=== PATIENT | male | born 2000 | race Caucasian/White ===

== ENCOUNTER 2022-06-12 12:06 | Inpatient (IN) | payer MEDICAID ==
[2022-06-12] VITALS (31 sets, daily range): BP systolic 94–121; BP diastolic 49–71
[~2022-06-12] VITALS: Ht 170.2 cm; Wt 68.0 kg
[~2022-06-12 12:06] MED LIST: AMOX/K CLAV875 M1 PO; HUMALOG100 UNIT/M SC
--- NOTE | 2022-06-12 12:10 | NUR ---
PT ARRIVED VIA EMS AND IS IN ROOM.
[2022-06-12 12:42] LABS: HEMATOCRIT 40.3 % (39.0-50.0); HEMOGLOBIN 14.9 g/dl (14.0-18.0); IMMATURE GRANULOCYTES 1.1 % (0.0-5.0); MEAN CELL VOLUME 81.6 fL CALC (80.0-100.0); MEAN CORPUSCULAR HGB 30.2 pG CALC (26.0-32.0); NEUT# 17.44 thou/uL (1.82-7.42); RED BLOOD COUNT 4.94 mill/uL (4.70-6.10); RED CELL DISTRI WIDTH 11.5 % (11.5-15.5)
--- NOTE | 2022-06-12 12:43 | NUR ---
PT IN ROOM ON MONITOR RECEIVING IV FLUIDS, AWAITING LAB AND ABG RESULTS, FAMILY AT BEDSIDE, WILL CONT TO MONITOR.
--- NOTE | 2022-06-12 13:05 | NUR ---
PT IN ROOM ON MONITOR RECEIVING LACTATED RINGERS VIA IV, PT REMAINS ALERT AND ORIENTED AND IS GIVING A URINE SAMPLE NOW.
--- NOTE | 2022-06-12 13:14 | NUR ---
URINE SAMPLE SENT TO LAB, AWAITING RESULTS.
[2022-06-12 13:18] LABS: ALBUMIN 4.6 g/dL (3.2-5.0); ALKALINE PHOSPHATASE 122 u/l (38-126); BILIRUBIN, TOTAL 0.4 mg/dL (0.0-1.4); BUN 28 mg/dL (8-21); BUN/CREATININE RATIO 28 (12-20 (CALC)); CHLORIDE 100 mmol/l (95-108); GFR FOR AFR.AMER. > 60 ML/MIN (>=60 (CALC)); GFR OTHER RACES > 60 ML/MIN (>=60 (CALC)); LIPASE 26 u/l (23-300); MAGNESIUM 2.2 mg/dL (1.6-2.3); SGOT/AST 33 u/l (17-59); SODIUM 135 mmol/l (137-146); TOTAL PROTEIN 6.9 g/dL (6.3-8.2)
[2022-06-12 13:25] LABS: ANION GAP 35 (6-22 (CALC))
[2022-06-12 13:26] LABS: CARBON DIOXIDE 6 mmol/l (22-30); POTASSIUM 5.9 mmol/l (3.5-5.1)
--- NOTE | 2022-06-12 13:26 | NUR ---
REPORTED CRITICAL LABS TO DR. CARUSO AND NURSE MELISSA, RN GLUCOSE 620, POTASSIUM 5.9, C02 6, LACTIC ACID 2.7. RECEIVED FROM MARGARET GONG.
--- NOTE | 2022-06-12 13:36 | NUR ---
INSULIN DRIP STARTED AT 5 UNITS/HR, BG 620 AT START OF INSULIN DRIP.
[2022-06-12 13:49] LABS: URINE BILIRUBIN - DIPSTICK NEGATIVE (NEGATIVE); URINE BLOOD DIPSTICK NEGATIVE (NEGATIVE); URINE COLOR YELLOW; URINE GLUCOSE - DIPSTICK 500 mg/dL (NEGATIVE); URINE KETONE >=80 mg/dL (NEGATIVE); URINE LEUK ESTERASE NEGATIVE (NEGATIVE); URINE PH 5.5 (4.5-8.0); URINE PROTEIN - DIPSTICK NEGATIVE (NEG-TRACE); URINE SPECIFIC GRAVITY 1.025; URINE UROBILINOGEN - DIPSTICK 0.2 E.U./dL (0.2)
[2022-06-12 13:50] LABS: URINE NITRITE - DIPSTICK NEGATIVE (Negative)
--- NOTE | 2022-06-12 14:27 | NUR ---
PT PENDING ADMISSION TO THE ICU, INSULIN DRIP RUNNING AND FAMILY IS AT BEDSIDE.
--- NOTE | 2022-06-12 14:34 | NUR ---
PT BS VIA ACCUCHECK IS 432 ONE HHOUR AFTER STARTING INSULIN DRIP, INFUSION CONTINUING AT 5 UNITS/HR. AWAITING ADMISSION TO ICU.
--- NOTE | 2022-06-12 15:17 | NUR ---
PT ADMITTED TO ICU, REPORT GIVEN TO LAWANDA CABRERA IN ED AND PT TRANSPORTED VIA STRETCHER TO ICU BY LAWANDA CABRERA WITH INSULIN DRIP INFUSING AT 5 UNITS/HR
--- NOTE | 2022-06-12 17:05 | NUR ---
PT ARRIVES FROM ER VIA STRETCHER ACCOMPANIED BY LAWANDA CABRERA AND AKI RN. PT IS ALERT AND ORIENTED X 3. INSULIN DRIP INFUSING AT 5 UNITS HOURLY, NOW DOWN TO 3 UNITS HOURLY PER HOURLY GLUCOSE METER READINGS. PT PROVIDED ICE CHIPS.
--- NOTE | 2022-06-12 19:11 | NUR ---
lab notified of need for blood draw due.
--- NOTE | 2022-06-12 19:12 | NUR ---
lab here. blood drawn.
--- NOTE | 2022-06-12 19:30 | NUR ---
awake. denies distress. conveyor monitor shows sinus rhythm. #18 rac ivf infusing well. #20 alonzo saline lock. voided per urinal. fall prcautions cont.
[2022-06-12 19:35] LABS: BUN 19 mg/dL (8-21); BUN/CREATININE RATIO 21 (12-20 (CALC)); CHLORIDE 109 mmol/l (95-108); CREATININE 0.9 mg/dL (0.7-1.3); GFR FOR AFR.AMER. > 60 ML/MIN (>=60 (CALC)); GFR OTHER RACES > 60 ML/MIN (>=60 (CALC)); SODIUM 140 mmol/l (137-146)
[2022-06-12 19:38] LABS: ANION GAP 26 (6-22 (CALC)); CARBON DIOXIDE 10 mmol/l (22-30); POTASSIUM 4.5 mmol/l (3.5-5.1)
--- NOTE | 2022-06-12 22:19 | NUR ---
lab here. blood drawn.
[2022-06-12 22:36] LABS: ANION GAP 21 (6-22 (CALC)); BUN 17 mg/dL (8-21); BUN/CREATININE RATIO 21 (12-20 (CALC)); CARBON DIOXIDE 12 mmol/l (22-30); CHLORIDE 108 mmol/l (95-108); CREATININE 0.8 mg/dL (0.7-1.3); GFR FOR AFR.AMER. > 60 ML/MIN (>=60 (CALC)); GFR OTHER RACES > 60 ML/MIN (>=60 (CALC)); POTASSIUM 4.4 mmol/l (3.5-5.1); SODIUM 137 mmol/l (137-146)
[2022-06-13] VITALS (12 sets, daily range): BP systolic 83–108; BP diastolic 36–81
--- NOTE | 2022-06-13 00:01 | NUR ---
eyes closed. no distress. ivf infusing well.
--- NOTE | 2022-06-13 02:05 | NUR ---
lab here. blood ddrawn.
[2022-06-13 02:31] LABS: BUN 15 mg/dL (8-21); BUN/CREATININE RATIO 20 (12-20 (CALC)); CHLORIDE 107 mmol/l (95-108); CREATININE 0.8 mg/dL (0.7-1.3); GFR FOR AFR.AMER. > 60 ML/MIN (>=60 (CALC)); GFR OTHER RACES > 60 ML/MIN (>=60 (CALC)); POTASSIUM 4.1 mmol/l (3.5-5.1); SODIUM 134 mmol/l (137-146)
[2022-06-13 02:37] LABS: ANION GAP 15 (6-22 (CALC)); CARBON DIOXIDE 16 mmol/l (22-30)
--- NOTE | 2022-06-13 04:00 | NUR ---
eyes closed. no apparent distress.
--- NOTE | 2022-06-13 06:03 | NUR ---
lab here. blood drawn.
[2022-06-13 06:06] LABS: HEMATOCRIT 36.2 % (39.0-50.0); HEMOGLOBIN 13.3 g/dl (14.0-18.0); IMMATURE GRANULOCYTES 0.2 % (0.0-5.0); MEAN CELL VOLUME 82.6 fL CALC (80.0-100.0); MEAN CORPUSCULAR HGB 30.4 pG CALC (26.0-32.0); MEAN CORPUSCULAR HGB CONC 36.7 g/dL CAL (32.0-36.0); NEUT# 9.72 thou/uL (1.82-7.42); RED BLOOD COUNT 4.38 mill/uL (4.70-6.10); RED CELL DISTRI WIDTH 11.9 % (11.5-15.5)
[2022-06-13 06:21] LABS: ANION GAP 14 (6-22 (CALC)); BUN 15 mg/dL (8-21); BUN/CREATININE RATIO 19 (12-20 (CALC)); CARBON DIOXIDE 18 mmol/l (22-30); CHLORIDE 106 mmol/l (95-108); CREATININE 0.8 mg/dL (0.7-1.3); GFR FOR AFR.AMER. > 60 ML/MIN (>=60 (CALC)); GFR OTHER RACES > 60 ML/MIN (>=60 (CALC)); POTASSIUM 3.7 mmol/l (3.5-5.1); SODIUM 134 mmol/l (137-146)
[2022-06-13 10:37] LABS: ANION GAP 17 (6-22 (CALC)); BUN 13 mg/dL (8-21); BUN/CREATININE RATIO 18 (12-20 (CALC)); CARBON DIOXIDE 17 mmol/l (22-30); CHLORIDE 104 mmol/l (95-108); CREATININE 0.7 mg/dL (0.7-1.3); GFR FOR AFR.AMER. > 60 ML/MIN (>=60 (CALC)); GFR OTHER RACES > 60 ML/MIN (>=60 (CALC)); SODIUM 134 mmol/l (137-146)
== END 2022-06-13 11:00 | disposition home or self-care (01) | DRG 639 ==
LOC: ED 12:06 → ED-I 13:20 → ED 13:56 → ICU 13:57
PROVIDERS: Family Medicine; ADMIT Internal Medicine; ATTEND Internal Medicine
DX: E10.10 Type 1 diabetes mellitus with ketoacidosis without coma (principal); F32.A Depression, unspecified; F41.9 Anxiety disorder, unspecified; F17.210 Nicotine dependence, cigarettes, uncomplicated; Z96.41 Presence of insulin pump (external) (internal); Z79.4 Long term (current) use of insulin; Z20.822 Contact with and (suspected) exposure to COVID-19

== ENCOUNTER 2022-07-11 11:04 | Emergency (ER) | payer MEDICAID ==
[~2022-07-11] VITALS: Ht 170.2 cm; Wt 80.0 kg
[2022-07-11 11:13] VITALS: BP 119/78
[2022-07-11 11:32] VITALS: BP 119/78
[2022-07-11] MEDS ORDERED: OMNI-PAC300 MG PO (11:43)
== END 2022-07-11 12:09 | disposition home or self-care (01) ==
LOC: ED 11:04
DX: L03.012 Cellulitis of left finger (principal); E10.8 Type 1 diabetes mellitus with unspecified complications; F32.A Depression, unspecified; E78.00 Pure hypercholesterolemia, unspecified; F41.9 Anxiety disorder, unspecified; F17.200 Nicotine dependence, unspecified, uncomplicated; Z79.4 Long term (current) use of insulin

== ENCOUNTER 2023-03-07 21:01 | Emergency (ER) | payer OTHER ==
[~2023-03-07] VITALS: Ht 170.2 cm; Wt 72.5 kg
[~2023-03-07 21:01] MED LIST changes: +OMNI-PAC300 MG PO
[2023-03-07 21:09] VITALS: BP 116/70
[2023-03-07 21:31] LABS: BASO% 0.1 % (0-3); EOS% 1.5 % (0-8); IMMATURE GRANULOCYTES 0.3 % (0.0-5.0); LYMPH% 4.7 % (15-41); MEAN CELL VOLUME 85.1 fL CALC (80.0-100.0); MEAN CORPUSCULAR HGB 30.1 pG CALC (26.0-32.0); MEAN CORPUSCULAR HGB CONC 35.3 g/dL CAL (32.0-36.0); MONO% 4.2 % (2-13); NEUT# 10.7 thou/uL (1.82-7.42); NEUT% 89.2 % (42-76); RED BLOOD COUNT 5.25 mill/uL (4.70-6.10); RED CELL DISTRI WIDTH 11.5 % (11.5-15.5)
[2023-03-07 21:33] LABS: HEMATOCRIT 44.7 % (39.0-50.0); HEMOGLOBIN 15.8 g/dl (14.0-18.0)
[2023-03-07 21:47] LABS: ALBUMIN 4.6 g/dL (3.2-5.0); ALKALINE PHOSPHATASE 68 u/l (38-126); BUN 21 mg/dL (9-20); BUN/CREATININE RATIO 26 (12-20 (CALC)); CHLORIDE 107 mmol/l (95-108); CREATININE 0.8 mg/dL (0.7-1.3); GFR FOR AFR.AMER. > 60 ML/MIN (>=60 (CALC)); GFR OTHER RACES > 60 ML/MIN (>=60 (CALC)); LIPASE 53 u/l (23-300); POTASSIUM 3.3 mmol/l (3.5-5.1); SGOT/AST 36 u/l (17-59); TOTAL PROTEIN 7.2 g/dL (6.3-8.2)
[2023-03-07 21:48] LABS: ANION GAP 13 (6-22 (CALC)); BILIRUBIN, TOTAL 0.6 mg/dL (0.2-1.3); CARBON DIOXIDE 24 mmol/l (22-30); MAGNESIUM 1.6 mg/dL (1.6-2.3); SODIUM 141 mmol/l (137-146)
[2023-03-07 21:53] VITALS: BP 116/70
[2023-03-07 23:26] LABS: URINE BILIRUBIN - DIPSTICK NEGATIVE (NEGATIVE); URINE BLOOD DIPSTICK NEGATIVE (NEGATIVE); URINE COLOR YELLOW; URINE GLUCOSE - DIPSTICK NEGATIVE (NEGATIVE); URINE KETONE TRACE mg/dL (NEGATIVE); URINE LEUK ESTERASE NEGATIVE (NEGATIVE); URINE PROTEIN - DIPSTICK NEGATIVE (NEG-TRACE); URINE SPECIFIC GRAVITY 1.015; URINE UROBILINOGEN - DIPSTICK 0.2 E.U./dL (0.2)
[2023-03-07] MEDS ORDERED: PROMETHAZINE HY25 M1 PO (23:32)
[2023-03-07 23:35] LABS: URINE NITRITE - DIPSTICK NEGATIVE (Negative)
== END 2023-03-07 23:45 | disposition home or self-care (01) ==
LOC: ED 21:01
PROVIDERS: Family Medicine
DX: K52.9 Noninfective gastroenteritis and colitis, unspecified (principal); E10.9 Type 1 diabetes mellitus without complications; F41.9 Anxiety disorder, unspecified; F32.A Depression, unspecified; E78.00 Pure hypercholesterolemia, unspecified; Z79.4 Long term (current) use of insulin; Z96.41 Presence of insulin pump (external) (internal)

== ENCOUNTER 2023-05-31 01:08 | Observation (INO) | payer OTHER ==
[2023-05-31] VITALS (18 sets, daily range): BP systolic 96–114; BP diastolic 53–71
[~2023-05-31] VITALS: Ht 170.2 cm; Wt 65.0 kg
[~2023-05-31 01:08] MED LIST changes: +PROMETHAZINE HY25 M1 PO
[2023-05-31 01:50] LABS: BASO% 0.2 % (0-3); EOS% 0.1 % (0-8); HEMATOCRIT 42.2 % (39.0-50.0); HEMOGLOBIN 14.4 g/dl (14.0-18.0); IMMATURE GRANULOCYTES 0.2 % (0.0-5.0); LYMPH% 6.7 % (15-41); MEAN CELL VOLUME 88.7 fL CALC (80.0-100.0); MEAN CORPUSCULAR HGB 30.3 pG CALC (26.0-32.0); MEAN CORPUSCULAR HGB CONC 34.1 g/dL CAL (32.0-36.0); MONO% 4.4 % (2-13); NEUT# 8.29 thou/uL (1.82-7.42); NEUT% 88.4 % (42-76); RED BLOOD COUNT 4.76 mill/uL (4.70-6.10); RED CELL DISTRI WIDTH 11.9 % (11.5-15.5)
[2023-05-31 01:53] LABS: URINE BILIRUBIN - DIPSTICK Negative (NEGATIVE); URINE BLOOD DIPSTICK Negative (NEGATIVE); URINE COLOR Yellow; URINE GLUCOSE - DIPSTICK 500 mg/dL (NEGATIVE); URINE KETONE >=160 mg/dL (NEGATIVE); URINE LEUK ESTERASE Negative (NEGATIVE); URINE NITRITE - DIPSTICK Negative (Negative); URINE PH 5.5 (4.5-8.0); URINE PROTEIN - DIPSTICK Negative (NEG-TRACE); URINE SPECIFIC GRAVITY 1.015; URINE UROBILINOGEN - DIPSTICK 0.2 E.U./dL (0.2)
[2023-05-31 02:03] LABS: ALBUMIN 4.3 g/dL (3.2-5.0); ALKALINE PHOSPHATASE 93 u/l (38-126); BUN 14 mg/dL (9-20); BUN/CREATININE RATIO 15 (12-20 (CALC)); CHLORIDE 99 mmol/l (95-108); CREATININE 0.9 mg/dL (0.7-1.3); GFR FOR AFR.AMER. > 60 ML/MIN (>=60 (CALC)); GFR OTHER RACES > 60 ML/MIN (>=60 (CALC)); LIPASE 37 u/l (23-300); SGOT/AST 44 u/l (17-59); TOTAL PROTEIN 6.6 g/dL (6.3-8.2)
[2023-05-31 02:12] LABS: ANION GAP 30 (6-22 (CALC)); CARBON DIOXIDE 9 mmol/l (22-30); POTASSIUM 5.2 mmol/l (3.5-5.1); SODIUM 133 mmol/l (137-146)
[2023-05-31 05:46] LABS: BUN 12 mg/dL (9-20); BUN/CREATININE RATIO 14 (12-20 (CALC)); CHLORIDE 108 mmol/l (95-108); CREATININE 0.8 mg/dL (0.7-1.3); GFR FOR AFR.AMER. > 60 ML/MIN (>=60 (CALC)); GFR OTHER RACES > 60 ML/MIN (>=60 (CALC)); POTASSIUM 4.6 mmol/l (3.5-5.1); SODIUM 136 mmol/l (137-146)
[2023-05-31 05:50] LABS: ANION GAP 17 (6-22 (CALC)); CARBON DIOXIDE 16 mmol/l (22-30)
[2023-05-31 08:01] LABS: HEMATOCRIT 38.5 % (39.0-50.0); HEMOGLOBIN 13.2 g/dl (14.0-18.0); MEAN CELL VOLUME 88.5 fL CALC (80.0-100.0); MEAN CORPUSCULAR HGB 30.3 pG CALC (26.0-32.0); MEAN CORPUSCULAR HGB CONC 34.3 g/dL CAL (32.0-36.0); RED BLOOD COUNT 4.35 mill/uL (4.70-6.10); RED CELL DISTRI WIDTH 11.9 % (11.5-15.5)
[2023-05-31 11:21] LABS: ANION GAP 10 (6-22 (CALC)); BUN 9 mg/dL (9-20); BUN/CREATININE RATIO 13 (12-20 (CALC)); CARBON DIOXIDE 22 mmol/l (22-30); CHLORIDE 107 mmol/l (95-108); CREATININE 0.7 mg/dL (0.7-1.3); GFR FOR AFR.AMER. > 60 ML/MIN (>=60 (CALC)); GFR OTHER RACES > 60 ML/MIN (>=60 (CALC)); SODIUM 135 mmol/l (137-146)
== END 2023-05-31 15:05 | disposition home or self-care (01) ==
LOC: ED 01:08 → ED-I 02:15 → ED 02:52 → ICU 02:53
PROVIDERS: Family Medicine; ADMIT Student in an Organized Health Care Education/Training Program; ATTEND Student in an Organized Health Care Education/Training Program
DX: E10.10 Type 1 diabetes mellitus with ketoacidosis without coma (principal); F41.9 Anxiety disorder, unspecified; F32.A Depression, unspecified; E78.00 Pure hypercholesterolemia, unspecified; T38.3X6A Underdosing of insulin and oral hypoglycemic [antidiabetic] drugs, initial encounter; Z91.128 Patient's intentional underdosing of medication regimen for other reason; Z96.41 Presence of insulin pump (external) (internal); Z79.4 Long term (current) use of insulin; Z20.822 Contact with and (suspected) exposure to COVID-19
CPT/HCPCS: J1650

== ENCOUNTER 2024-05-03 19:36 | Emergency (ER) | payer SELFPAY ==
[~2024-05-03] VITALS: Ht 170.2 cm; Wt 70.0 kg
[2024-05-03] VITALS (16 sets, daily range): BP systolic 94–132; BP diastolic 53–81
[~2024-05-03 19:36] MED LIST changes: +HUMULIN 70/30 SC
[2024-05-03] MEDS ORDERED: SODIUM CHLORIDE 1,000 ML BTL IR ONE (19:49)
[2024-05-03] MEDS ORDERED: MORPHINE SULFATE 4 MG/ML VIAL IV ONE (19:50)
[2024-05-03] MEDS ORDERED: LACTATED RINGER'S 1,000 ML IV ONE ×2 (19:50)
[2024-05-03] MEDS ORDERED: ONDANSETRON HCl 4 MG/2 ML SDV IV ONE (19:50)
[2024-05-03] MEDS ORDERED: Diph, Acellular Pertussis, Tet 0.5 ML/VIAL (Tdap) SDV IM ONE (19:55)
[2024-05-03] MEDS ORDERED: KETOROLAC TROMETHAMINE 15 MG/ML SDV IV ONE (20:00)
[2024-05-03 20:14] LABS: BASO% 0.5 % (0-3); EOS% 2.6 % (0-8); HEMATOCRIT 42.3 % (39.0-50.0); HEMOGLOBIN 15.1 g/dl (14.0-18.0); IMMATURE GRANULOCYTES 0.1 % (0.0-5.0); LYMPH% 20.7 % (15-41); MEAN CELL VOLUME 84.4 fL CALC (80.0-100.0); MEAN CORPUSCULAR HGB 30.1 pG CALC (26.0-32.0); MEAN CORPUSCULAR HGB CONC 35.7 g/dL CAL (32.0-36.0); NEUT# 6.55 thou/uL (1.82-7.42); NEUT% 70.1 % (42-76); RED BLOOD COUNT 5.01 mill/uL (4.70-6.10); RED CELL DISTRI WIDTH 11.4 % (11.5-15.5)
[2024-05-03 20:31] LABS: ALBUMIN 4.4 g/dL (3.2-5.0); BILIRUBIN, TOTAL 0.5 mg/dL (0.2-1.3); POTASSIUM 3.8 mmol/l (3.5-5.1); TOTAL PROTEIN 6.9 g/dL (6.3-8.2)
[2024-05-03] MEDS ORDERED: SILVADENE1 % EX (21:37)
[2024-05-03] MEDS ORDERED: CELEBREX200 MG PO (21:38)
[2024-05-03] MEDS ORDERED: SILVER SULFADIAZINE 50 GM/TUBE EA TOP ONE (21:40)
== END 2024-05-03 23:29 | disposition home or self-care (01) | DRG 935 ==
LOC: ED 19:36
PROVIDERS: Emergency Medicine
PROC: 2W2RX4Z Dressing of Left Lower Leg using Bandage (ICD-10-PCS; principal; 2024-05-03)
PROC: 2W2QX4Z Dressing of Right Lower Leg using Bandage (ICD-10-PCS; 2024-05-03)
DX: T24.202A Burn of second degree of unspecified site of left lower limb, except ankle and foot, initial encounter (principal); T24.201A Burn of second degree of unspecified site of right lower limb, except ankle and foot, initial encounter; T31.0 Burns involving less than 10% of body surface; X04.XXXA Exposure to ignition of highly flammable material, initial encounter; Y93.89 Activity, other specified; Y92.007 Garden or yard of unspecified non-institutional (private) residence as the place of occurrence of the external cause